=== PATIENT | male | born 2000 | race Hispanic/Latino ===

== ENCOUNTER 2023-05-21 08:28 | Emergency (ER) | payer SELFPAY ==
[~2023-05-21] VITALS: Ht 167.6 cm; Wt 81.8 kg
[2023-05-21] MEDS ORDERED: ONDANSETRON 4MG 2ML VIAL IV ONE (09:10)
[2023-05-21] MEDS ORDERED: NS 1,000 ML IV ONE ×3 (09:15→12:00)
[2023-05-21] MEDS ORDERED: IBUP-1114 PO (09:26)
[2023-05-21] MEDS ORDERED: ASPI81CH33 PO (09:26)
[2023-05-21 09:37] LABS: BASO # 0.1 10^3/uL (0.0-0.2); BASO % 1.2 % (0.0-1.0); EOS % 0.1 % (0.0-3.0); HEMATOCRIT 47.1 % (42.0-52.0); HEMOGLOBIN 16.8 g/dl (13.5-17.5); LYMPH # 1.7 10^3/uL (1.5-5.0); LYMPH % 16.7 % (24.0-44.0); MEAN CORPUSCULAR HEMOGLOBIN 33.9 pg (27.0-33.0); MEAN CORPUSCULAR HGB CONC 35.7 g/dl (32.0-36.5); MONO # 0.5 10^3/uL (0.0-0.8); MONO % 4.8 % (2.0-8.0); NEUTROPHILS # 7.7 10^3/uL (1.5-8.5); PLATELET COUNT, AUTOMATED 328 10^3/uL (150-450); RED BLOOD COUNT 4.96 10^6/uL (4.30-6.10)
[2023-05-21 09:45] LABS: ERYTHROCYTE SEDIMENTATION RATE 34 mm/hr (0-15)
[2023-05-21] MEDS ORDERED: HALOPERIDOL 5MG/ML 1ML VIAL IV ONE (09:55)
[2023-05-21 09:59] LABS: INR 1.01
[2023-05-21 10:00] LABS: PARTIAL THROMBOPLASTIN TIME 22.5 SECONDS (24.8-34.2)
[2023-05-21] MEDS ORDERED: ISOVUE-370 76% 100ML VIAL As Ordered ONE (11:36)
[2023-05-21] MEDS ORDERED: KETOROLAC 30 MG/ML 1ML VIAL IV ONE (12:45)
[2023-05-21] MEDS ORDERED: PROMETHAZINE 25MG/ML 1ML VIAL IV ONE (14:10)
[2023-05-21 14:23] LABS: ABG BASE EXCESS -2.9 (-2.0-2.0); ABG HCO3 20.1 MMOL/L (22.0-26.0); ABG O2 SATURATION 96.8 % (95.0-99.0); ABG PARTIAL PRESSURE CO2 30.3 mmHg (35.0-45.0); ABG PARTIAL PRESSURE O2 93.7 mmHg (75.0-100.0); ABG STANDARD HCO3 22.1 MMOL/L. (22.0-26.0); ABG pH (ARTERIAL) 7.439 UNITS (7.350-7.450)
[2023-05-21 18:07] VITALS: TEMP 96.9
[2023-05-21 19:00] VITALS: O2SAT 100
[2023-05-21 19:01] VITALS: BP 135/77
[2023-05-21 22:27] LABS: CK-MB VALUE MASS < 1.0 NG/ML (<3.6); CPK CREATINE PHOSPHOKINASE 282 U/L (46-171); MB/CK RELATIVE INDEX 0.35 (< OR =4)
[2023-05-22 11:34] LABS: BLOOD UREA NITROGEN 5 MG/DL (7-21); GLUCOSE, FASTING 156 MG/DL (70-99)
[2023-05-22 11:35] LABS: ALBUMIN 4.9 G/DL (3.9-5.0); ALKALINE PHOSPHATASE 127 U/L (40-129); ALT/SGPT 246 U/L (1-41); AST/SGOT 599 U/L (5-40); BILIRUBIN,DIRECT 0.3 MG/DL (0.1-0.4); BILIRUBIN,TOTAL 0.8 MG/DL (0.2-1.3); CALCIUM LEVEL 9.8 MG/DL (8.4-10.2); CARBON DIOXIDE LEVEL 14 MEQ/L (22-30); CHLORIDE LEVEL 88 MEQ/L (98-107); CPK CREATINE PHOSPHOKINASE 354 U/L (30-170); CREATININE FOR GFR 0.8 MG/DL (0.7-1.5); GLOMERULAR FILTRATION RATE > 60.0 (>60); SODIUM LEVEL 136 MEQ/L (134-153); TOTAL PROTEIN 8.1 G/DL (6.3-8.2)
[2023-05-22 11:36] LABS: C REACTIVE PROTEIN QUANTITATIV 1.03 MG/L (1.00-3.00); LIPASE 28 U/L (13-60); THYROID STIMULATING HORMONE 1.73 UIU/ML (0.47-5.01)
[2023-05-22 11:37] LABS: AMPHETAMINES LEVEL URINE NEGATIVE (NEGATIVE); BARBITURATES URINE NEGATIVE (NEGATIVE); BENZODIAZEPINES URINE NEGATIVE (NEGATIVE); CANNABINOIDS URINE POSITIVE (NEGATIVE); COCAINE METABOLITE URINE NEGATIVE (NEGATIVE); OPIATES URINE NEGATIVE (NEGATIVE); PHENCYCLIDINE URINE NEGATIVE (NEGATIVE)
[2023-05-24 09:24] LABS: PROCALCITONIN 0.09 NG/ML (0.0-0.08)
== END 2023-05-21 19:24 | disposition home or self-care (01) ==
LOC: M ED 08:28
DX: F10.129 Alcohol abuse with intoxication, unspecified (principal); R00.0 Tachycardia, unspecified; I45.81 Long QT syndrome; F17.200 Nicotine dependence, unspecified, uncomplicated; Z91.048 Other nonmedicinal substance allergy status; Z79.82 Long term (current) use of aspirin; Z79.1 Long term (current) use of non-steroidal anti-inflammatories (NSAID)
CPT/HCPCS: 36600; 71045; 71275; 74177; 80047; 80048; 80076; 80307; 82077; 82550; 82553; 82803; 83690; 83880; 84145; 84443; 84484; 85025; 85610; 85652; 85730; 86140; 87040; 87486; 87581; 87633; 87798; 93005; 93041; 94760; 96361; 96374; 96375; 99285; J1630; J1885; J2405; J2550; Q9967

== ENCOUNTER 2023-05-25 03:55 | Emergency (ER) | payer MEDICAID, SELFPAY ==
[~2023-05-25] VITALS: Ht 167.6 cm; Wt 80.1 kg
[~2023-05-25 03:55] MED LIST: ASPI81CH33 PO; IBUP-1114 PO
[2023-05-25 04:31] LABS: HEMOGLOBIN 13.8 g/dl (13.5-17.5); MEAN CORPUSCULAR HEMOGLOBIN 33.5 pg (27.0-33.0); MEAN CORPUSCULAR HGB CONC 34.5 g/dl (32.0-36.5); MEAN CORPUSCULAR VOLUME 97.1 fl (80.0-96.0); PLATELET COUNT, AUTOMATED 238 10^3/uL (150-450); RED BLOOD COUNT 4.12 10^6/uL (4.30-6.10); WHITE BLOOD COUNT 15.6 10^3/uL (4.0-10.0)
[2023-05-25 05:01] LABS: BLOOD UREA NITROGEN 9 MG/DL (9-23); CALCIUM LEVEL 9.1 MG/DL (8.5-10.1); CARBON DIOXIDE LEVEL 26 MMOL/L (20-31); CHLORIDE LEVEL 97 MMOL/L (98-107); CK-MB VALUE MASS < 1.0 NG/ML (<3.6); CREATININE FOR GFR 0.64 MG/DL (0.70-1.30); GLOMERULAR FILTRATION RATE > 60.0 (>60); GLUCOSE, FASTING 92 MG/DL (60-100); POTASSIUM SERUM 3.3 MMOL/L (3.5-5.1); SODIUM LEVEL 134 MMOL/L (136-145)
[2023-05-25 05:04] LABS: CPK CREATINE PHOSPHOKINASE 163 U/L (46-171); MB/CK RELATIVE INDEX 0.61 (< OR =4)
[2023-05-25 05:32] LABS: BASOPHILS 1 % (0-1); LYMPHOCYTES 7 % (16-44); MONOCYTES 13 % (0-5); NEUTROPHILS 78 % (28-66); PLATELET ESTIMATE NORMAL (NORMAL)
[2023-05-25 05:33] LABS: ANISOCYTOSIS 1+; MICROCYTOSIS 1+
[2023-05-25] MEDS ORDERED: PANTOPRAZOLE 40MG VIAL IV ONE (07:15)
[2023-05-25] MEDS ORDERED: NS 1,000 ML IV ONE (07:15)
[2023-05-25] MEDS ORDERED: HYOSCYAMINE SULFATE 0.125 MG SUBL TABLET PO ONE (07:15)
[2023-05-25] MEDS ORDERED: MAALOX 30 ML SUSP *UDC PO ONE (07:15)
[2023-05-25] MEDS ORDERED: HALOPERIDOL 5MG/ML 1ML VIAL IV ONE (07:15)
[2023-05-25 09:04] VITALS: BP 132/85; TEMP 96.5; O2SAT 99
[2023-05-25 09:10] LABS: CK-MB VALUE MASS 1.2 NG/ML (<3.6)
[2023-05-25 09:12] LABS: CPK CREATINE PHOSPHOKINASE 133 U/L (46-171)
== END 2023-05-25 09:32 | disposition home or self-care (01) ==
LOC: EDBD 03:55 → M ED 03:55
DX: R07.9 Chest pain, unspecified (principal); F41.9 Anxiety disorder, unspecified; Z91.048 Other nonmedicinal substance allergy status; Z79.82 Long term (current) use of aspirin; Z79.1 Long term (current) use of non-steroidal anti-inflammatories (NSAID)
CPT/HCPCS: 71045; 80048; 82550; 82553; 84484; 85025; 93005; 96361; 96374; 99284; C9113; J1630